=== PATIENT | male | born 1975 | race Caucasian/White ===

== ENCOUNTER 2018-03-25 17:48 | Emergency (ER) | payer BC ==
[~2018-03-25] VITALS: Ht 170.1 cm; Wt 105.2 kg
--- NOTE | ~2018-03-25 | EKG ---
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
--- NOTE | ~2018-03-25 | EKG ---
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
[2018-03-25 18:20] LABS: BASO % 0.4 % (0.0-1.0); EOS # 0.1 10*3/uL (0.0-0.4); EOS % 1.3 % (1.0-4.0); HEMATOCRIT 41.5 % (42.0-52.0); HEMOGLOBIN 13.6 g/dl (14.0-18.0); LYMPH # 3.5 10*3/uL (1.3-4.4); LYMPH % 37.4 % (27.0-41.0); MEAN CORPUSCULAR HGB 27.5 pg (27.0-31.0); MEAN CORPUSCULAR HGB CONC 32.8 g/dl (33.0-37.0); MONO # 0.8 10*3/uL (0.1-1.0); MONO % 8.5 % (3.0-9.0); NEUT # 4.8 10*3/uL (2.3-7.9); NEUT % 52.2 % (47.0-73.0); PLATELET COUNT AUTOMATED 207 10*3/uL (130-400); RED BLOOD COUNT 4.94 10*6/uL (4.50-5.90); RED CELL DISTRI WIDTH 12.9 % (0-14.5); WHITE BLOOD COUNT 9.2 10*3/uL (4.8-10.8)
[2018-03-25 18:36] LABS: ALBUMIN 3.9 gm/dl (3.1-4.5); ALKALINE PHOSPHATASE 83 U/L (45-117); BUN 15 mg/dl (7-24); CHLORIDE 108 mmol/L (98-107); CREATININE 0.97 mg/dL (0.70-1.30); SGOT/AST 15 IU/L (3-35); SGPT/ALT 27 U/L (12-78); SODIUM 140 mmol/L (136-145)
[2018-03-25 18:37] LABS: TROPONIN I < 0.015 ng/ml (<0.045)
[2018-03-25] MEDS ORDERED: Motrin,Rufen800 MG PO (21:32)
[2018-03-25] MEDS ORDERED: ROBAXIN500 M1 PO (21:32)
== END 2018-03-25 21:35 | disposition home or self-care (01) ==
LOC: ED 17:48
PROVIDERS: Emergency Medicine
DX: R07.9 Chest pain, unspecified (principal); M54.2 Cervicalgia; K21.9 Gastro-esophageal reflux disease without esophagitis

== ENCOUNTER 2021-02-14 17:44 | Emergency (ER) | payer BC ==
[~2021-02-14] VITALS: Wt 104.3 kg
[~2021-02-14 17:44] MED LIST: Motrin,Rufen800 MG PO; ROBAXIN500 M1 PO
[2021-02-14] MEDS ORDERED: IBUPROFEN600 MG PO (23:42)
[2021-02-14] MEDS ORDERED: CEPHALEXIN500 M1 PO (23:42)
== END 2021-02-15 00:10 | disposition home or self-care (01) ==
LOC: ED 17:44
DX: S51.812A Laceration without foreign body of left forearm, initial encounter (principal); Z79.899 Other long term (current) drug therapy; X58.XXXA Exposure to other specified factors, initial encounter; Y93.89 Activity, other specified; Y92.89 Other specified places as the place of occurrence of the external cause; Y99.8 Other external cause status